=== PATIENT | female | born 2000 | race Hispanic/Latino ===

== ENCOUNTER 2021-12-19 14:45 | Emergency (ER) | payer OTHER ==
[~2021-12-19] VITALS: Ht 147.3 cm; Wt 50.8 kg
[2021-12-19 15:21] VITALS: BP 111/69
[2021-12-19 15:21] LABS: BASOPHILS % (AUTO) 0.4 % (0.0-5.0); EOSINOPHILS % (AUTO) 1.4 % (0.0-8.0); HEMATOCRIT 38.8 % (36-48); MEAN CORPUSCULAR HGB CONC 33.5 g/dL (32.0-36.0); MEAN CORPUSCULAR VOLUME 86.6 fL (79-99); MONOCYTES % (AUTO) 7.5 % (3.0-13.0); NEUTROPHILS % (AUTO) 67.2 % (40.0-77.0); PLATELET COUNT (AUTO) 289 K/uL (130-400); RED BLOOD CELL COUNT(AUTO) 4.48 MIL/uL (4.00-5.50); RED CELL DISTRIBUTION WIDTH 12.3 % (11.0-15.5); WHITE BLOOD COUNT (AUTO) 10.3 K/uL (4.8-10.8)
[2021-12-19 15:27] LABS: APPEARANCE,URINE Clear (CLEAR); BILIRUBIN,URINE Negative (NEGATIVE); COLOR,URINE Dark Yellow (YELLOW); GLUCOSE, URINE (UA) TRACE mg/dL (NEGATIVE); KETONES,URINE Negative (NEGATIVE); LEUKOCYTE ESTERASE ,URINE Negative (NEGATIVE); NITRATE,URINE Negative (NEGATIVE); OCCULT BLOOD,URINE Large (NEGATIVE); PH,URINE 5.5 (5.0-8.0); PROTEIN,URINE Trace mg/dL (NEGATIVE)
[2021-12-19 15:29] LABS: HCG,QUAL RESULT POSITIVE (NEGATIVE)
[2021-12-19 15:30] LABS: CREATININE 0.6 mg/dL (0.5-1.5); POTASSIUM 3.2 mmol/L (3.5-5.1)
[2021-12-19 15:45] LABS: BACTERIA,URINE Rare /HPF (None Seen); WBC,URINE 0-1 /HPF (0-1)
[2021-12-19 15:46] LABS: MUCUS,URINE Few LPF (None Seen); SQUAMOUS EPITHELIAL CELL,UR Rare /HPF (0-2)
[2021-12-19 15:56] LABS: ALBUMIN 3.6 g/dL (3.5-5.0); BILIRUBIN,TOTAL 0.3 mg/dL (0.2-1.0); TOTAL PROTEIN, SERUM 7.3 g/dL (6.0-8.3)
[2021-12-19] MEDS ORDERED: POTASSIUM BICARB/CIT AC 25 MEQ TABLET.EFF PO ONE (17:00)
== END 2021-12-19 17:02 | disposition home or self-care (01) ==
LOC: EDH 14:45
DX: O20.0 Threatened abortion (principal); Z3A.01 Less than 8 weeks gestation of pregnancy
CPT/HCPCS: 36415; 76801; 80053; 81001; 81025; 84702; 85025; 86900; 86901

== ENCOUNTER 2024-11-25 19:52 | Emergency (ER) | payer MEDICAID ==
[~2024-11-25] VITALS: Ht 147.3 cm; Wt 56.7 kg
--- NOTE | 2024-11-25 20:07 | ERN ---
ED Note History of Present Illness Stated Complaint: VAGINAL BLEEDING Chief Complaint: Vaginal Problems/Bleeding Time Seen by MD: 20:02 Dictation: This is a 24-year-old female who presented to the emergency room with complaints of vaginal bleeding that started around 4:00 p.m. today apparently she started seeing large clots and she has changed pad since that time at least 4 or 5 times she saw clots. She also reports abdominal cramps. Patient stated that she is on control pills and has a regular periods. In September she had monthly menses lasting for 3 days. Her next period was November 12 which lasted for a few days. The massive bleeding today started when she was at work and she got concerned and came in. She does report mild lower back pain and cramping in the lower abdominal region. No burning micturition. She is unaware that she may be . Temperature 98.8 pulse 115 respirations 20 blood pressure 116/67 with a pulse oximetry of 100% on room air history-her 1st was when she was 16 years old-live male child who is 8 years old now, she has a normal 2nd -little go almost 2 years old. Allergies: Coded Allergies: No Known Drug Allergies (Unverified Allergy, Unknown, 12/19/21) Past Medical History Past Medical History: No Pertinent History Surgical History: Family History: Negative Social History: Negative LMP: November 12, 2024 : 2 Para: 2 RN Note Reviewed/Agreed w/PFSH: Yes Review of System Dictation Constitutional: Negative for fever,chills, and weight loss Eyes: Negative for injury, pain,redness, and discharge ENT: Negative for injury,pain or swelling Cardiovascular: Negative for chest pain, palpitations, and edema Respiratory: Negative for shortness of breath, cough, and wheezing, Abdomen/GI: Negative for abdominal pain, nausea, vomiting, diarrhea, and constipation Back: Negative for injury and pain : Negative for injury, bleeding and discharge MS/Extremity: Negative for injury and deformity Skin: Negative for rash, and discoloration Neuro: Negative for headache, weakness, numbness, tingling, and seizure Psych: Negative for suicide ideation, homicidal ideation, and hallucinations Initial Vital Sign VS Vital Signs Date Time Temp Pulse Resp B/P (MAP) Pulse Ox O2 Delivery O2 Flow Rate FiO2 11/25/24 19:54 98.8 115 20 116/67 100 Room Air 11/25/24 23:33 0 21 Physical Exam Dictation General: awake, alert, NAD Head/Face: Normocephalic, atraumatic Eyes: PERRL, EOMI, vision at baseline ENT: oral cavity clear, TMs clear, no signs of infection Neck: Trachea midline, supple, no nuchal rigidity Cardiovascular: RRR, normal S1/S2, No MRGs, no JVD Respiratory: CTAB, no respiratory distress, No rales or wheezes Abdomen: Soft, non-tender, non-distended, normal bowel sounds, no guarding or rebound. Skin: Warm, dry, normal turgor, no rash MS/Extremity: Pulses equal, no cyanosis, neurovascular intact, FROM Neuro: COAx4, GCS 15, strength 5/5, CN 2-12 intact, normal cerebellar exam, normal gait, Psych: Normal behavior, mood, and affect normal Extremities-trace edema without any palpable cords, Homans sign is negative -normal vulva labia major and minor aura. Small amounts of bright red blood at the introitus noted. Results (Laboratory/Radiology) Laboratory/Radiology Laboratory Tests Test 11/25/24 20:14 11/25/24 20:17 Human Chorionic Gonadotropin, Quant 35275 mIU/mL (0-5) H White Blood Count 22.0 K/uL (4.8-10.8) H Red Blood Count 3.62 MIL/uL (4.00-5.50) L Hemoglobin 10.7 g/dL (12.0-16.0) L Hematocrit 30.3 % (36-48) L Mean Corpuscular Volume 83.7 fL (79-99) Mean Corpuscular Hemoglobin 29.6 pg (27.0-33.0) Mean Corpuscular Hemoglobin Concent 35.3 g/dL (32.0-36.0) Red Cell Distribution Width 12.1 % (11.0-15.5) Platelet Count 323 K/uL (130-400) Mean Platelet Volume 9.2 fL (7.5-10.5) Immature Granulocyte % (Auto) 1.7 % (0-1) H Neutrophils (%) (Auto) 84.2 % (40.0-77.0) H Lymphocytes (%) (Auto) 8.0 % (21.0-51.0) L Monocytes (%) (Auto) 5.6 % (3.0-13.0) Eosinophils (%) (Auto) 0.2 % (0.0-8.0) Basophils (%) (Auto) 0.3 % (0.0-5.0) Neutrophils # (Auto) 18.5 K/uL (1.8-7.7) H Lymphocytes # (Auto) 1.8 K/uL (1.0-4.8) Monocytes # (Auto) 1.2 K/uL (0.1-1.0) H Eosinophils # (Auto) 0.05 K/uL (0.00-0.70) Basophils # (Auto) 0.06 K/uL (0.00-0.20) Absolute Immature Granulocyte (auto 0.38 K/uL (0-1) Nucleated Red Blood Cells 0.0 % (0.0-0.19) White Cell Morphology Comment See comments Urine Color DARK-BROWN (YELLOW) Urine Appearance TURBID (CLEAR) Urine pH 6.0 (5.0-8.0) Urine Specific [place] 1.029 (1.001-1.031) Urine Protein 200 mg/dL (NEGATIVE) H Urine Glucose (UA) NEGATIVE mg/dL (NEGATIVE) Urine Ketones 10 mg/dL (NEGATIVE) H Urine Occult Blood LARGE (NEGATIVE) H Urine Nitrate NEGATIVE (NEGATIVE) Urine Bilirubin NEGATIVE mg/dL (NEGATIVE) Urine Urobilinogen 0.2 mg/dL (0.2-1.0) Urine Leukocyte Esterase 250 Susan/uL (NEGATIVE) H Urine RBC TNTC /HPF (0-1) H Urine WBC 2-5 /HPF (0-1) H Urine Bacteria RARE /HPF (None Seen) Sodium Level 135 mmol/L (136-145) L Potassium Level 3.6 mmol/L (3.5-5.1) Chloride Level 100 mmol/L (101-111) L Carbon Dioxide Level 25 mmol/L (21-32) Blood Urea Nitrogen 13 mg/dL (7-18) Creatinine 0.5 mg/dL (0.5-1.0) Glomerular Filtration Rate Calc 133 mL/min (>90) Random Glucose 106 mg/dL (70-105) H Total Calcium 8.6 mg/dL (8.5-10.1) Serum Test, Qualitative POSITIVE (NEGATIVE) H Labs Reviewed?: Yes ED Course ED Course Orders Procedure Category Date Status Time Cbc With Differential LAB 11/25/24 Complete 20:04 Testing, LAB 11/25/24 Complete Serum Hcg 20:04 0.9%Nacl 1000ml (Ns PHA 11/25/24 Complete 1000ml) 20:30 Basic Metabolic Panel LAB 11/25/24 Complete 20:04 Urinalysis Profile LAB 11/25/24 Complete 20:22 Us Ob <14 Weeks US 11/25/24 Taken 20:46 Hcg,Quantitative LAB 11/25/24 Complete 20:48 Culture Urine AROLDO 11/25/24 In Process 21:00 Blood Cult AROLDO 11/25/24 In Process 22:37 Zosyn 3.375gm+Ns 50ml PHA 11/25/24 Complete (Zosyn 3.375gm+Ns 23:00 Current Medications Medications (Trade) Dose Ordered Sig/Alma Route PRN Reason Start Time Stop Time Status Last Admin Dose Admin Piperacillin Sod/ Tazobactam Sod (Zosyn 3.375gm+NS 50ml) 3.375 gm ONCE ONCE IV 11/25/24 23:00 11/25/24 23:02 DC 11/25/24 23:09 Sodium Chloride 1,000 ml @ 0 mls/hr ONCE ONCE IV 11/25/24 20:30 11/25/24 20:31 DC 11/25/24 20:19 Vital Signs Date Time Temp Pulse Resp B/P (MAP) Pulse Ox O2 Delivery O2 Flow Rate FiO2 11/25/24 23:33 98.4 98 18 118/65 99 Room Air* 0 21 11/25/24 19:54 98.8 115 20 116/67 100 Room Air We will perform diagnostic labs, advanced imaging and administer medications according to the patient's complaint. Once the results are available, will review and personally interpreted the labs to rule out any acute life- threatening emergency the trach require immediate intervention and treatment. I will then re-evaluate the patient after treatment and diagnostic exams have return to determine whether the patient requires any further testing, can safely be discharged home or need further admission to hospital for additional treatment and evaluation. Labs [place] [address] hemoglobin 10.7 platelets 323 BNP 7 sodium is 135 BUN and creatinine are 13 and 0.3 glucose is 106. Urinalysis shows a large amounts of blood and moderate leuko esterase positive however WBCs are 2-5. Serum test [place] [address]. 9:35 p.m. ultrasound OB-no gestational sac noted. Patient has large placenta in the uterus cavity. The fetus is in the upper part of the vagina. Cervical canal is dilated and open. Due to lack of OBGYN services at this hospital, I have initiated transfer to the facility with a [employer]. 10:50 p.m.-consulted with Dr. Ryder Lara, patient's OBGYN and discussed the case with him and he recommended transferring the patient to [facility]. He has accepted the patient for further management and interventions as necessary. 11:06 p.m. discussed with ER physician Dr. Modesto Bey in the main emergency room for ER to ER transfer. Medical Decision Making MDM MDM: Differential diagnosis: , incomplete , subchorionic hemorrhage, dysmenorrhea Rationale: Tests considered and ordered secondary to shared decision making include: labs, ECG and radiology Previous outside records reviewed: Old ER visits. Risk of complication and/or morbidity or mortality of patient management: None Medications-Per medication reconciliation Need for hospitalization: Patient does meet criteria for hospitalization. Need for emergency major/minor surgery: No There are no social concerns with this patient. Prescription drug management Prescriptions will include symptomatic care Patient's prior external medical records from other ER visits were reviewed by me as indicated. Prior testing and results from previous visits were reviewed. Prior tests were taken into account with medical decision making and resource utilization, independent historian/historians were used to obtain complete medical history. I independently interpreted the test that were performed, results were reviewed by me and considered findings on radiology if ordered. Medical management and examination interpretation discussions were had by me wit h other qualified healthcare professionals as indicated for the patient's care. Problem List Problem List: (1) Incomplete (2) Vaginal bleeding before 22 weeks gestation DX & DISP Disposition: Transfer Departure Impression: Primary Impression: Incomplete Additional Impression: Vaginal bleeding before 22 weeks gestation Condition: Stable Additional Instructions: The patient has been informed about all the diagnostic tests and procedures carried out in the emergency room today and has confirmed understanding of the results. Patient will be transferred to a facility that provides a higher level of care since such services are not accessible locally or within our immediate community. The patient is alert oriented and not experiencing any acute distress. There are no signs of sepsis and patient's hemodynamic status is stable at the moment. Medically, the patient is considered stable for transfer Patient will be transferred to a higher level of care with the OBGYN services availability. Referrals: SELF,REFERRAL (PCP) MANSOOR SANDOVAL MD Nov 25, 2024 20:07
[2024-11-25] MEDS: 0.9%NACL 1000ML 1,000 ML IV ONE (20:19)
[2024-11-25 20:33] LABS: BASOPHILS # (AUTO) 0.06 K/uL (0.00-0.20); BASOPHILS % (AUTO) 0.3 % (0.0-5.0); EOSINOPHILS # (AUTO) 0.05 K/uL (0.00-0.70); EOSINOPHILS % (AUTO) 0.2 % (0.0-8.0); HEMATOCRIT 30.3 % (36-48); IMMATURE GRANULOCYTE ABSOLUTE 0.38 K/uL (0-1); LYMPHOCYTES # (AUTO) 1.8 K/uL (1.0-4.8); MEAN CORPUSCULAR HEMOGLOBIN 29.6 pg (27.0-33.0); MEAN CORPUSCULAR HGB CONC 35.3 g/dL (32.0-36.0); MEAN CORPUSCULAR VOLUME 83.7 fL (79-99); MONOCYTES # (AUTO) 1.2 K/uL (0.1-1.0); MONOCYTES % (AUTO) 5.6 % (3.0-13.0); NEUTROPHILS # (AUTO) 18.5 K/uL (1.8-7.7); NEUTROPHILS % (AUTO) 84.2 % (40.0-77.0); PLATELET COUNT (AUTO) 323 K/uL (130-400); RED BLOOD CELL COUNT(AUTO) 3.62 MIL/uL (4.00-5.50); RED CELL DISTRIBUTION WIDTH 12.1 % (11.0-15.5)
[2024-11-25 20:42] LABS: CREATININE 0.5 mg/dL (0.5-1.0); POTASSIUM 3.6 mmol/L (3.5-5.1)
[2024-11-25 20:58] LABS: APPEARANCE,URINE TURBID (CLEAR); BILIRUBIN,URINE NEGATIVE (NEGATIVE); COLOR,URINE DARK-BROWN (YELLOW); GLUCOSE, URINE (UA) NEGATIVE (NEGATIVE); KETONES,URINE 10 mg/dL (NEGATIVE); LEUKOCYTE ESTERASE ,URINE 250 Leu/uL (NEGATIVE); NITRATE,URINE NEGATIVE (NEGATIVE); OCCULT BLOOD,URINE LARGE (NEGATIVE); PROTEIN,URINE 200 mg/dL (NEGATIVE); UROBILINOGEN,URINE 0.2 mg/dL (0.2-1.0)
[2024-11-25 21:00] LABS: ADD UA MICROSCOPIC YES
[2024-11-25 21:10] LABS: BACTERIA,URINE RARE /HPF (None Seen); MUCUS,URINE FEW LPF (None Seen); RBC,URINE TNTC /HPF (0-1)
[2024-11-25] MEDS: ZOSYN 3.375GM +NS 50ML IV ONE (23:09)
--- NOTE | 2024-11-25 23:32 | NUR ---
REPORT CALLED TO JAZ CACERES AT [facility] [place]- ED. AWAITING EMS TRANSPORT
[2024-11-25 23:33] VITALS: BP 118/65; PULSE 98; RESP 18; TEMP 98.5; O2SAT 99
--- NOTE | 2024-11-26 00:23 | NUR ---
EMS ARRIVAL FOR TRANSFER TO [facility] [place] [facility]
--- NOTE | 2024-11-26 10:46 | HMCIMG ---
Exam Type: US OB <14 WEEKS Clinical Information: severe vaginal bleeding Comparison: None Findings and impression: Anteverted enlarged uterus with retained process of conception within the cervical canal as well as a posterior placenta which is still attached. No viable seen at this time.
== END 2024-11-26 00:30 | disposition short-term general hospital (02) ==
LOC: EDH 19:52
DX: O03.4 Incomplete spontaneous abortion without complication (principal); O26.891 Other specified pregnancy related conditions, first trimester; R10.2 Pelvic and perineal pain; Z3A.01 Less than 8 weeks gestation of pregnancy
CPT/HCPCS: 99285; 96374; 76801; 80048; 84703; 84702; 85025; 87040 ×2; 87086; 81001; 36415; J7030; J2543